=== PATIENT | female | born 1970 | race Caucasian/White ===

== ENCOUNTER 2023-04-17 17:01 | Emergency (ER) | payer OTHER, MEDICAID, SELFPAY ==
[2023-04-17 17:06] VITALS: BP 184/102; PULSE 115; RESP 20; TEMP 37.3; O2SAT 97; BMI 38.0
[2023-04-17 17:30] VITALS: PULSE 116; O2SAT 96
[2023-04-17 17:35] VITALS: BP 126/83; PULSE 106; O2SAT 98
[2023-04-17 18:00] VITALS: BP 149/77; PULSE 105; RESP 15; O2SAT 97
[2023-04-17] MEDS: SODIUM CHLORIDE 0.9% 1,000 ML 1000 ML IV (18:07)
[2023-04-17 18:15] LABS: Add Manual Diff / Slide Review NO; Basophils Absolute Auto 0 /uL (0-100); Basophils Percent Auto 0.7 % (0-2); Eosinophils Absolute Auto 0 /uL (0-450); Eosinophils Percent Auto 0.4 % (2-4); Hemoglobin 12.7 g/dL (12.0-16.0); Lymphocytes Absolute Auto 1500 /uL (1100-4500); Lymphocytes Percent Auto 25.9 % (25-40); Mean Corpuscular HGB Conc 34.2 % (30-36); Mean Corpuscular Hemoglobin 31.1 PG (26-34); Mean Corpuscular Volume 90.9 fL (80-100); Monocytes Absolute Auto 1100 /uL (0-900); Monocytes Percent Auto 19.3 % (3-14); Neutrophils Absolute Auto 3200 /uL (1500-7000); Neutrophils Percent Auto 53.7 % (50-75); Platelet Count 329 X10^3/uL (150-400); Red Blood Cell Count 4.07 X10^6/uL (4.0-5.2); Red Cell Distribution Width 14.8 % (11.6-14.8); White Blood Cell Count 5.9 X10^3/uL (4.5-11.0)
[2023-04-17 18:22] LABS: Alanine Aminotransferase 184 IU/L (<35); Albumin 3.7 g/dL (3.5-5.0); Albumin Globulin Ratio 1.2 (1.0-2.8); Alkaline Phosphatase 201 U/L (38-126); Aspartate Aminotransferase 100 IU/L (14-36); BUN Creatinine Ratio 14.3 (6-22); Bilirubin Total 0.3 mg/dL (0.2-1.3); Blood Urea Nitrogen 7 mg/dL (7-17); Calcium 8.7 mg/dL (8.4-10.2); Carbon Dioxide 24 mmol/L (22-32); Chloride 101 mmol/L (98-107); Estimated Glomerular Filt Rate > 60 mL/min (>60); Globulin 3.1 g/dL (1.7-4.1); Glucose 285 mg/dL (70-100); HEMOLYSIS < 15 (0-50); Potassium 3.8 mmol/L (3.4-5.1); Sodium 132 mmol/L (137-145); Total Protein 6.8 g/dL (6.3-8.2)
[2023-04-17] MEDS: KETOROLAC 30 MG/ML VIAL 15 MG IV (18:24)
[2023-04-17 18:30] VITALS: BP 142/67; PULSE 101; RESP 20; RESP 24; O2SAT 95
--- NOTE | 2023-04-17 18:35 | ED.CHESTPAIN ---
HPI - Chest Pain General Chief Complaint: Chest Pain Stated Complaint: covid+/feels like shes going to Time Seen by Provider: 04/17/23 18:34 Source: patient Mode of arrival: Ambulatory Limitations: no limitations History of Present Illness HPI narrative: 53-year-old female with history of degenerative joint disease, chronic pain, chronically elevated liver enzymes and recurrent UTIs. Patient states that she tested positive for COVID at home on . She states her symptoms did not start until Wednesday but her daughter had tested positive on Wednesday so she had checked. Patient states she is had nasal congestion, cough with a little bit of yellowish sputum, she is had body aches, she is had nausea persistently occasional vomiting. She states no diarrhea, no constipation she has been stooling. She denies dysuria urgency or frequency she states her urine has been a little bit darker. She does describe some flank pain with her body aches and states she is had recurrent UTIs in the past and is unsure if this is urinary related or from the COVID. She denies any new swelling of her extremities. Patient states no new chest pain or shortness of breath. No syncope. Patient notes her liver enzymes have been elevated she is had an ultrasound of her liver and has been referred to follow up with Gastroenterology and has not appointment in June. Streets allergic to Cipro, Levaquin, prochlorperazine, quinine and sulfa. No tobacco, alcohol or illicit. Patient does note that she takes extended-release morphine and oxycodone and that she is had some trouble keeping these down over the last day. Related Data Home Medications Medication Instructions Recorded Confirmed morphine 30 mg tablet,extended See Rx Instructions .Route .COMPLEX 04/17/23 04/17/23 release Previous Rx's Medication Instructions Recorded ondansetron 4 mg disintegrating 4 mg PO Q6H PRN nausea and 04/17/23 tablet vomiting #10 tabs Allergies Allergy/AdvReac Type Severity Reaction Status Date / Time ciprofloxacin [From Cipro] Allergy Verified 04/17/23 17:10 levofloxacin Allergy Verified 04/17/23 17:10 prochlorperazine Allergy Verified 04/17/23 17:10 [From Compazine] quinine Allergy Verified 04/17/23 17:10 Sulfa (Sulfonamide Allergy Verified 04/17/23 17:10 Antibiotics) Review of Systems Review of Systems ROS Unobtainable: All systems reviewed & are unremarkable except as noted in HPI and below Patient History Social History Smoking Status: Never smoker Smoking Status: Never smoker Substance Use Type: does not use Exam Narrative Exam Narrative: GEN: Obese female, alert and oriented x 3, patient appears to be in mild distress. HEENT: Atraumatic, pupils are equal round reactive to light, extraocular movements are intact, nares are clear, there is no conjunctival pallor. HEART: Regular rate and rhythm without murmur, clicks, rubs. Pulses are equal in upper and lower extremities LUNGS:Lungs clear to auscultation, no wheezes, rales, crackles, chest moves symmetrically, no tachypnea or accessory muscle use ABD:bowel sounds normal, soft, non-tender, no guarding, rebound, rigidity, no masses noted, no hepatosplenomegaly :No CVA tenderness bilaterally. MSCL: Non-tender, no muscle atrophy, muscles strength 5/5 upper and lower extremities, full range of motion, normal gait NEURO:CN 2-12 intact, sensation normal SKIN: No rash, erythema or other skin changes. Initial Vital Signs Initial Vital Signs: Vital Signs Temperature 99.2 F 04/17/23 17:06 Pulse Rate 115 H 04/17/23 17:06 Respiratory Rate 20 04/17/23 17:06 Blood Pressure 184/102 H 04/17/23 17:06 Pulse Oximetry 97 04/17/23 17:06 Oxygen Delivery Method Room Air 04/17/23 17:06 Course Orders Ordered: ED Orders 04/17/23 17:14 EKG-12 Lead Stat 04/17/23 18:02 Complete Blood Count AUTO DIFF Stat Comprehensive Metabolic Panel Stat Discontinued Medications Sodium Chloride (Normal Saline 0.9%) 1,000 mls @ 1,000 mls/hr IV BOLUS ONE Stop: 04/17/23 18:13 Last Infusion: 04/17/23 19:09 Dose: Infused Documented By: Admin: 04/17/23 18:07 Dose: 1,000 mls/hr Documented By: DEEMTRIS Ketorolac Tromethamine (Ketorolac 30 Mg/Ml Vial) 15 mg IV NOW ONE Stop: 04/17/23 18:18 Last Admin: 04/17/23 18:24 Dose: 15 mg Documented By: LISBET Ondansetron HCl (Ondansetron 4 Mg/2 Ml Inj) 4 mg IV NOW ONE Stop: 04/17/23 18:48 Last Admin: 04/17/23 19:09 Dose: 4 mg Documented By: DEMETRIS Ondansetron HCl (Ondansetron 4 Mg Odt Prepack) 1 bottle MISC SEEINSTR ONE Stop: 04/17/23 18:57 Last Admin: 04/17/23 19:09 Dose: 1 bottle Documented By: DEMETRIS Vital Signs Vital signs: Vital Signs - 8 hr 04/17/23 17:06 04/17/23 17:30 04/17/23 17:35 Temperature 99.2 F Pulse Rate 115 H 116 H 106 H Respiratory Rate 20 Blood Pressure 184/102 H Pulse Oximetry 97 96 98 Oxygen Delivery Method Room Air 04/17/23 17:35 04/17/23 18:00 04/17/23 18:00 Temperature Pulse Rate 105 H Respiratory Rate 15 Blood Pressure 126/83 149/77 H Pulse Oximetry 97 Oxygen Delivery Method Room Air 04/17/23 18:30 04/17/23 18:30 Temperature Pulse Rate 101 H Respiratory Rate 24 20 Blood Pressure 142/67 H Pulse Oximetry 95 Oxygen Delivery Method Room Air MDM - Chest Pain Lab Data 04/17/23 18:02 04/17/23 18:02 Labs: Lab Results 04/17/23 Range/Units 18:02 WBC 5.9 (4.5-11.0) X10^3/uL RBC 4.07 (4.0-5.2) X10^6/uL Hgb 12.7 (12.0-16.0) g/dL Hct 37.0 (36-46) % MCV 90.9 (80-100) fL MCH 31.1 (26-34) PG MCHC 34.2 (30-36) % RDW 14.8 (11.6-14.8) % Plt Count 329 (150-400) X10^3/uL Neut % (Auto) 53.7 (50-75) % Lymph % (Auto) 25.9 (25-40) % [place] % (Auto) 19.3 H (3-14) % Eos % (Auto) 0.4 L (2-4) % Baso % (Auto) 0.7 (0-2) % Neut # (Auto) 3200 (4907-4230) /uL Lymph # (Auto) 1500 (1559-9459) /uL [place] # (Auto) 1100 H (0-900) /uL Eos # (Auto) 0 (0-450) /uL Baso # (Auto) 0 (0-100) /uL Sodium 132 L (137-145) mmol/L Potassium 3.8 (3.4-5.1) mmol/L Chloride 101 (98-107) mmol/L Carbon Dioxide 24 (22-32) mmol/L BUN 7 (7-17) mg/dL Creatinine 0.49 L (0.52-1.04) mg/dL Estimated GFR > 60 (>60) mL/min BUN/Creatinine Ratio 14.3 (6-22) Glucose 285 H (70-100) mg/dL Calcium 8.7 (8.4-10.2) mg/dL Total Bilirubin 0.3 (0.2-1.3) mg/dL AST 100 H (14-36) IU/L ALT 184 H (<35) IU/L Alkaline Phosphatase 201 H (38-126) U/L Total Protein 6.8 (6.3-8.2) g/dL Albumin 3.7 (3.5-5.0) g/dL Globulin 3.1 (1.7-4.1) g/dL Albumin/Globulin Ratio 1.2 (1.0-2.8) Urine Dip Bedside Urine Glucose 1000 mg/dl Bedside Urine Bilirubin - Negative Bedside Urine Ketone ++ 40 Urine Specific [place] 1.020 Bedside Urine Occult Blood - Negative Bedside Urine pH 6.0 Bedside Urine Protein +/- 15 Bedside Urine Urobilinogen - Negative Bedside Urine Nitrite - Negative Bedside Urine Leukocytes - Negative Esterase ECG Data Attestation: I personally reviewed and interpreted this ECG as follows: Prior ECG tracings: not available for review Interpretation: Normal sinus rhythm rate of 98 NE 194 QRS of 90 QTC of 449. No acute ST elevation or depression appreciated. No priors for comparison. MDM Narrative Medical decision making narrative: 53-year-old female who presents with signs and symptoms consistent with COVID infection, patient had positive home test this the . Symptoms really started on Wednesday but she would had recent exposure which is why she tested. CBC is consistent she has elevated monos at 19 white count is appropriate at 5.9 hemoglobin is 12.7 with platelets of 329. Chemistry shows a sodium 132 potassium of 3 8 creatinine is appropriate with BUN of 7, glucose is 285 which patient relates has been elevated chronically for the last several months, patient does have elevation of her LFTs with AST of 100, ALT of 184 and alk-phos of 201, bilirubin is 0.3 and patient states that she is been told these have been elevated and has referral to GI. She has had a liver ultrasound. She has had cholecystectomy in the past. She is nontender in this area today. Patient has generalized body aches fevers, chills she is had some intermittent nausea and vomiting and had difficulty keeping down her oral pain medications likely contributing to her symptoms. Slightly tachycardic but never hypoxic in the department, no hypotensive patient is overall appears appropriate for discharge. She did relate some low back pain and has a recurrent UTI so point of care urine was obtained and shows glucose of a 1000, ketones, protein no nitrates or leuks, patient's anion gap 7. Patient received Toradol, fluids she is not had any persistent vomiting department but given a dose of Zofran. Plan for antiemetics to take with her regular pain medications as well as Tylenol ibuprofen [id number] at home. Patient feels comfortable with this plan. She has been up and ambulated to the bathroom without any issue, no hypoxia. Discharge Plan Departure Patient Disposition: Home Clinical Impression: COVID-19 virus infection, Nausea and vomiting Instructions: DI for COVID-19 (Suspected or Confirmed ) Activity Restrictions/Additional Instructions: Please follow-up for recheck as needed. Your liver enzymes are mildly elevated today, please keep your appointment with gastroenterology regarding your liver. You may take Zofran 1 tablet every 4 hours as needed for nausea. You can take Tylenol up to a 1000 mg every 6 hours and/or ibuprofen up to 600 mg every 6 hours. Prescription sent to [facility] in [place]. Please return for rapidly worsening symptoms, new or worsening chest pain, shortness of breath, coughing up blood, passing out, persistent vomiting, black or bloody stools or other new or concerning changes. Prescriptions: New ondansetron 4 mg tablet,disintegrating 4 mg PO Q6H PRN (Reason: nausea and vomiting) Qty: 10 0RF No Action morphine 30 mg tablet extended release See Rx Instructions .ROUTE .COMPLEX Rx Instructions: Take 2 tablets in the morning and take one tablet in the evening as needed for severe pain -Do not crush, chew, or split Stand Alone Forms: Patient Portal/API
[2023-04-17] MEDS: ONDANSETRON 4 MG ODT PREPACK 1 BOTTLE MISC (19:09)
[2023-04-17] MEDS: ONDANSETRON 4 MG/2 ML INJ IV (19:09)
== END 2023-04-17 19:19 | disposition home or self-care (01) ==
PROVIDERS: Emergency Medicine; Emergency Provider Emergency Medicine
DX: U07.1 COVID-19 (principal); R11.2 Nausea with vomiting, unspecified
CPT/HCPCS: 36415; 80053; 81003; 85025; 93005; 93010; 96361; 96374; 96375; 99284; J1885; J2405